=== PATIENT | female | born 1985 | race Caucasian/White ===

== ENCOUNTER → 2017-09-27 | Outpatient (CLI) | payer OTHER ==
[2017-09-27 08:38] LABS: HEMATOCRIT 42.7 % (36.0-47.0); HEMOGLOBIN 14.5 g/dL (12.0-15.5); MEAN CORPUSCULAR HEMOGLOBIN 29.5 pg (27.0-33.4); MEAN CORPUSCULAR VOLUME 87 fl (80-97); PLATELET COUNT 199 10^3/uL (150-450); RED BLOOD COUNT 4.93 10^6/uL (3.72-5.28); RED CELL DISTRIBUTION WIDTH 13.2 % (11.5-14.0); WHITE BLOOD COUNT 5.8 10^3/uL (4.0-10.5)
[2017-09-27 08:43] LABS: APPEARANCE,URINE SLIGHTLY-CLOUDY; BILIRUBIN,URINE NEGATIVE (NEGATIVE); GLUCOSE, URINE NEGATIVE (NEGATIVE); KETONES,URINE TRACE mg/dL (NEGATIVE); LEUKOCYTE ESTERASE,URINE TRACE (NEGATIVE); NITRITE,URINE NEGATIVE (NEGATIVE); PROTEIN,URINE NEGATIVE (NEGATIVE); URINE SPECIFIC GRAVITY 1.018
[2017-09-27 08:49] LABS: COLOR,URINE DARK YELLOW
[2017-09-27 08:57] LABS: AMYLASE 48 U/L (30-110); ANION GAP 9 (5-19); CARBON DIOXIDE 29 mmol/L (22-30); CHLORIDE 106 mmol/L (98-107); CHOLESTEROL 132.77 mg/dL (0-200); GLUCOSE 89 mg/dL (75-110); PHOSPHORUS 3.8 mg/dL (2.5-4.5); POTASSIUM 4.3 mmol/L (3.6-5.0); SODIUM 143.9 mmol/L (137-145); TRIGLYCERIDES 59 mg/dL (<150)
[2017-09-27 09:07] LABS: DIRECT LDL 78 mg/dL (<100)
[2017-09-27 09:09] LABS: PREALBUMIN 23.6 mg/dL (17.6-36.0)
[2017-09-27 12:59] LABS: FREE T4 (FREE THYROXINE) 1.02 ng/dL (0.78-2.19)
[2017-09-27 13:13] LABS: THYROID STIMULATING HORMONE 0.56 uIU/mL (0.47-4.68)
--- NOTE | 2017-09-27 13:18 | EKG REPORT ---
SEVERITY:- NORMAL ECG - SINUS RHYTHM : Confirmed by: Abdifatah Burns MD 27-Sep-2017 13:17:07
== END ==
LOC: OD 07:32
PROVIDERS: ATTEND Psychiatry & Neurology Psychiatry
DX: Z79.899 Other long term (current) drug therapy (principal)
CPT/HCPCS: 36415; 80051; 80061; 81005; 82150; 82947; 83735; 84100; 84134; 84439; 84443; 84703; 85027; 93005; 93010

== ENCOUNTER → 2017-10-11 | Outpatient (CLI) | payer OTHER ==
[2017-10-11 07:57] LABS: HEMATOCRIT 40.8 % (36.0-47.0); HEMOGLOBIN 14.1 g/dL (12.0-15.5); MEAN CORPUSCULAR HEMOGLOBIN 30.2 pg (27.0-33.4); MEAN CORPUSCULAR HGB CONC 34.6 g/dL (32.0-36.0); MEAN CORPUSCULAR VOLUME 87 fl (80-97); PLATELET COUNT 179 10^3/uL (150-450); RED BLOOD COUNT 4.66 10^6/uL (3.72-5.28); RED CELL DISTRIBUTION WIDTH 13.6 % (11.5-14.0); WHITE BLOOD COUNT 6.6 10^3/uL (4.0-10.5)
[2017-10-11 07:59] LABS: APPEARANCE,URINE SLIGHTLY-CLOUDY; BILIRUBIN,URINE NEGATIVE (NEGATIVE); GLUCOSE, URINE NEGATIVE (NEGATIVE); KETONES,URINE TRACE mg/dL (NEGATIVE); LEUKOCYTE ESTERASE,URINE MODERATE (NEGATIVE); NITRITE,URINE NEGATIVE (NEGATIVE); PROTEIN,URINE NEGATIVE (NEGATIVE); URINE SPECIFIC GRAVITY 1.021
[2017-10-11 08:00] LABS: COLOR,URINE YELLOW
--- NOTE | 2017-10-11 08:16 | EKG REPORT ---
SEVERITY:- NORMAL ECG - SINUS RHYTHM : Confirmed by: Saritha Johnson MD 11-Oct-2017 08:14:45
[2017-10-11 08:19] LABS: AMYLASE 77 U/L (30-110); ANION GAP 8 (5-19); CARBON DIOXIDE 29 mmol/L (22-30); CHLORIDE 108 mmol/L (98-107); CHOLESTEROL 116.97 mg/dL (0-200); GLUCOSE 93 mg/dL (75-110); PHOSPHORUS 3.7 mg/dL (2.5-4.5); POTASSIUM 4.1 mmol/L (3.6-5.0); SODIUM 144.6 mmol/L (137-145); TRIGLYCERIDES 56 mg/dL (<150)
[2017-10-11 08:29] LABS: PREALBUMIN 25.2 mg/dL (17.6-36.0)
[2017-10-11 08:36] LABS: DIRECT LDL 58 mg/dL (<100)
== END ==
LOC: OD 07:06
PROVIDERS: ATTEND Psychiatry & Neurology Psychiatry
DX: Z79.899 Other long term (current) drug therapy (principal)
CPT/HCPCS: 36415; 80051; 80061; 81005; 82150; 82947; 83735; 84100; 84134; 84443; 84703; 85027; 93005; 93010

== ENCOUNTER 2018-08-06 18:59 | Emergency (ER) | payer OTHER ==
[2018-08-06] MEDS ORDERED: HYDROCODONE/ACETAMINOPHEN 5-325 MG TABLET PO ONE (22:09)
--- NOTE | 2018-08-06 22:41 | RADIOLOGY REPORT (SQ) ---
EXAM DESCRIPTION: XR SHOULDER 2 OR MORE VIEWS COMPLETED DATE/TME: 08/06/2018 22:07 CLINICAL HISTORY: 33 years, Female, pain COMPARISON: None. NUMBER OF VIEWS: 3 TECHNIQUE: 3 view left shoulder LIMITATIONS: None. FINDINGS: Negative for fracture or dislocation. Soft tissues are unremarkable. Joint spaces are preserved IMPRESSION: Negative exam copyright 2010 [employer]- All Rights Reserved
--- NOTE | 2018-08-06 22:41 | RADIOLOGY REPORT (SQ) ---
EXAM DESCRIPTION: XR HIP 2 OR MORE VIEWS COMPLETED DATE/TME: 08/06/2018 22:08 CLINICAL HISTORY: 33 years, Female, pain COMPARISON: None. NUMBER OF VIEWS: 2 TECHNIQUE: AP pelvis and frog-leg view of the left hip LIMITATIONS: None. FINDINGS: Negative for fracture or dislocation. Soft tissues are unremarkable IMPRESSION: Negative exam copyright 2010 [employer]- All Rights Reserved
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
[2018-08-06 23:35] VITALS: BP 115/84
== END 2018-08-06 23:37 | disposition home or self-care (01) ==
LOC: ER 18:59
DX: M25.512 Pain in left shoulder (principal); M25.552 Pain in left hip; V53.5XXD Driver of pick-up truck or van injured in collision with car, pick-up truck or van in traffic accident, subsequent encounter
CPT/HCPCS: 99283

== ENCOUNTER → 2018-10-16 | Outpatient (CLI) | payer SELFPAY ==
--- NOTE | 2018-10-16 19:05 | RADIOLOGY REPORT (SQ) ---
EXAM DESCRIPTION: MRI LT UPPER JOINT WITHOUT COMPLETED DATE/TIME: 10/16/2018 6:08 pm REASON FOR STUDY: M25.512 PAIN IN LEFT SHOULDER M25.512 PAIN IN LEFT SHOULDER COMPARISON: Radiograph 08/06/2018 TECHNIQUE: Left shoulder images acquired and stored on PACS. Multiplanar imaging to include fat sens itive sequences such as T1, water sensitive sequences such as FST2/STIR, cartilage sensitive sequence s such as FSPD/gradient-echo sequences. LIMITATIONS: None. FINDINGS: BONE MARROW AND CORTEX: No worrisome bone lesions or marrow replacement. No occult fractur es. JOINT OR BURSAL EFFUSION: No significant joint or bursal fluid. No suggestion of loose bodies. GLENO-HUMERAL ARTICULATION: Normal articulation. No subluxation. No cystic change. No osteophytes or cartilage loss. ACROMION AND AC JOINT: No down-sloping or distal spur. Sub-acromial space maintained. No significa nt AC joint arthropathy. ROTATOR CUFF AND INTERVAL: No rotator cuff tear. Mild tendinosis of the distal supraspinatus tendon. . No cuff muscle atrophy. No rotator interval tear. No rotator interval thickening to suggest adhesive capsulitis. LABRUM AND BICEPS LABRAL COMPLEX: Irregular appearance of the posterior labrum, possible labral tea r. Intra-articular long-head biceps tendon normal. Distal biceps in normal location in bicipital jessie ove. REMAINDER OF LABRUM AND IGHL : No gross tear or paralabral cyst formation. Labral evaluation is less than optimal without joint distention. No thickening of IGHL to suggest adhesive capsulitis. PERIARTICULAR AND ADJACENT SOFT TISSUES: No masses or abnormal nodes. OTHER: No other significant finding. IMPRESSION: No rotator cuff tear. Mild tendinosis of the distal supraspinatus tendon. Irregular ap pearance of the posterior labrum, possible labral tear, consider MR arthrogram to further evaluate. TECHNICAL DOCUMENTATION: JOB ID: [id number] [place]-72 2010 [employer]- All Rights Reserved Reading location - IP/workstation name: [email or web address]
== END ==
LOC: RAD 15:55
PROVIDERS: ATTEND Nurse Practitioner Family
DX: M25.512 Pain in left shoulder (principal); M75.82 Other shoulder lesions, left shoulder

== ENCOUNTER → 2018-11-05 | Day surgery (SDC) | payer SELFPAY ==
--- NOTE | 2018-11-05 16:03 | RADIOLOGY REPORT (SQ) ---
EXAM DESCRIPTION: ARTHRO SHOULDER; FLUORO/NEEDLE PLACEMENT/SPINE COMPLETED DATE/TIME: 11/05/2018 3:37 pm REASON FOR STUDY: M25.512 PAIN IN LEFT SHOULDER; PAIN IN LEFT SHOULDER M25.512 PAIN IN LEFT SHOULDE R COMPARISON: None. FLUOROSCOPY TIME: 16 seconds 1 images saved to PACS. LIMITATIONS: None. PROCEDURE: Procedure, risks, benefits and alternatives explained to patient who then gave written co nsent. The left shoulder was marked and a time out was called for correct procedure verification. Po sterior entry site marked using fluoroscopic guidance. Shoulder prepped and draped using sterile yola hnique. Local anesthesia achieved using 1% lidocaine injection. Hypodermic needle introduced into t he joint space under direct fluoroscopic visualization. Non-ionic contrast instilled to confirm intra -articular position. Dilute gadolinium solution then injected. Needle removed and entry site covered with sterile bandage. No immediate complications noted. TECHNIQUE: Digital images acquired during fluoroscopy and stored on PACS. Patient immediately take n to the MR suite for additional imaging. INJECTION LOCATION: Posterior left shoulder. CONTRAST TYPE AND AMOUNT: 1 cc Omnipaque 10 cc Dotarem/Saline mixture. IMPRESSION: SUCCESSFUL NEEDLE PLACEMENT AND INJECTION FOR LEFT SHOULDER MR ARTHROGRAM USING POSTERIO R APPROACH. COMMENT: Quality ID [id number]: Final reports for procedures using fluoroscopy that document radiation exp osure indices, or exposure time and number of fluorographic images (if radiation exposure indices are not available) TECHNICAL DOCUMENTATION: JOB ID: [id number] [employer]- All Rights Reserved Reading location - IP/workstation name: [email or web address]
--- NOTE | 2018-11-05 16:45 | RADIOLOGY REPORT (SQ) ---
EXAM DESCRIPTION: MRI CERVICAL SPINE WITHOUT COMPLETED DATE/TIME: 11/05/2018 4:31 pm REASON FOR STUDY: M25.512 PAIN IN LEFT SHOULDER M25.512 PAIN IN LEFT SHOULDER COMPARISON: None. TECHNIQUE: Sagittal and Axial imaging includes T1, T2, STIR and gradient echo sequences. LIMITATIONS: Motion. FINDINGS: ALIGNMENT: Reversal of the lordotic curve. VERTEBRAE: Intact. BONE MARROW: Benign hemangioma C 7. No significant marrow abnormality. DISCS: Normal. No significant abnormal signal or loss of height. HARDWARE: None in the spine. CORD AND BASE OF BRAIN: Normal in size and signal intensity. SOFT TISSUES: No soft tissue masses. C1-C2: No significant spinal stenosis. C2-C3: No significant spinal stenosis or exit foraminal stenosis. C3-C4: Disc bulge. No significant stenosis. C4-C5: Disc bulge. No significant stenosis. C5-C6: Minimal disc bulge. No significant stenosis. C6-C7: No significant spinal stenosis or exit foraminal stenosis. C7-T1: No significant spinal stenosis or exit foraminal stenosis. UPPER THORACIC: Incompletely imaged. No significant spinal stenosis or exit foraminal stenosis. OTHER: No other significant finding. IMPRESSION: Bulging discs. No evidence of disc herniation. TECHNICAL DOCUMENTATION: JOB ID: [id number] [employer]- All Rights Reserved Reading location - IP/workstation name: [email or web address]
--- NOTE | 2018-11-05 16:48 | RADIOLOGY REPORT (SQ) ---
EXAM DESCRIPTION: MRI LT UPPER JOINT WITH COMPLETED DATE/TIME: 11/05/2018 4:31 pm REASON FOR STUDY: M25.512 PAIN IN LEFT SHOULDER M25.512 PAIN IN LEFT SHOULDER COMPARISON: 10/16/2018 TECHNIQUE: Left shoulder images acquired and stored on PACS. Oblique coronal, oblique sagittal, and axial imaging to include fat sensitive sequences as T1, water sensitive sequences as FST2/STIR, and c ontrast sensitive sequences as FST1. LIMITATIONS: None. FINDINGS: JOINT DISTENTION: Adequate distention for interpretation. BONE MARROW AND CORTEX: Normal. No significant osteophytes. No edema or defects. AC JOINT: Type II acromion. No significant AC joint arthropathy. GLENOHUMERAL JOINT: No subluxation or dislocation. No focal chondral defects or reactive bone changes . ROTATOR CUFF: Intact without significant tendinopathy, partial or full-thickness tears. No peritendin itis. LABRUM AND BICEPS LABRAL COMPLEX: Normal signal in the rotator interval without tear of the superior glenohumeral ligament. Superior labrum, intra-articular long head biceps intact. Distal biceps in no rmal anatomic location in bicipital groove. No paralabral cysts. INFERIOR LABRAL COMPLEX: Bony glenoid and labrum intact. IGHL intact without thickening or tear. No p aralabral cysts. ADJACENT SOFT TISSUES: No masses or nodes. OTHER: No other significant finding. IMPRESSION: NORMAL MRI ARTHROGRAM OF THE SHOULDER. TECHNICAL DOCUMENTATION: JOB ID: [id number] [employer]- All Rights Reserved Reading location - IP/workstation name: [email or web address]
== END ==
LOC: RAD 14:33
PROVIDERS: ATTEND Nurse Practitioner Family
DX: M25.512 Pain in left shoulder (principal)
CPT/HCPCS: 73222; 72141; 73040; 77002; A9576; 77003

== ENCOUNTER 2019-05-30 15:21 | Emergency (ER) | payer BC, OTHER ==
[2019-05-30 15:29] VITALS: BP 123/84
[2019-05-30] MEDS ORDERED: HYDROCODONE/ACETAMINOPHEN 5-325 MG TABLET PO ONE (16:54)
[2019-05-30] MEDS ORDERED: LIDOCAINE 5% (700 MG) TRANSDERMAL ADH..PATCH TP ONE (16:54)
--- NOTE | 2019-05-30 16:59 | ER Document Report ---
HPI - HPI Patient complains to provider of: upper back pain Time Seen by Provider: 05/30/19 16:33 Onset: This afternoon Onset/Duration: Sudden Quality of pain: Achy Pain Level: 4 Context: Patient states she was at work and moved suddenly pulling her right upper back. Patient states that she has a history of a left shoulder injury for which she frequently attempts to compensate. Patient denies any traumatic new injury. Patient feels as though her back is spasming. Associated Symptoms: denies: Fever, Headache Exacerbated by: Movement Relieved by: Denies Similar symptoms previously: Yes Recently seen / treated by doctor: No - ROS ROS below otherwise negative: Yes Systems Reviewed and Negative: Yes All other systems reviewed and negative - CONSTITUTIONAL Constitutional: DENIES: Fever - NEURO Neurology: DENIES: Headache, Weakness - REPRODUCTIVE LMP: 2017 had ablasion Reproductive: DENIES: : - MUSCULOSKELETAL Musculoskeletal: REPORTS: Extremity pain, Back Pain - DERM Skin Color: Normal Skin Problems: None Past Medical History - General Information source: Patient - Social History Smoking Status: Current Every Day Smoker Chew tobacco use (# tins/day): No Frequency of alcohol use: None Drug Abuse: None Occupation: [employer] Lives with: Family Family History: Reviewed & Not Pertinent Patient has suicidal ideation: No Patient has homicidal ideation: No - Medical History Medical History: Other - Guillain-Quintanilla Renal/ Medical History: Denies: Hx Peritoneal Dialysis Musculoskeletal Medical History: Reports Hx Arthritis Past Surgical History: Reports: Hx Tubal Ligation Vertical Provider Document - CONSTITUTIONAL Agree With Documented VS: Yes Exam Limitations: No Limitations General Appearance: WD/WN, No Apparent Distress - INFECTION CONTROL TRAVEL OUTSIDE OF THE [place] IN LAST 30 DAYS: No - HEENT HEENT: Atraumatic, Normocephalic - NECK Neck: Supple. negative: Lymphadenopathy-Left, Lymphadenopathy-Right Notes: right paraspinal muscle tenderness, spasm - RESPIRATORY Respiratory: Breath Sounds Normal, No Respiratory Distress - CARDIOVASCULAR Cardiovascular: Regular Rate, Regular Rhythm Pulses: Normal: Radial - BACK Back: Abnormal Inspection - right thoracic paraspinal muscle tenderness and spasm, no midline tenderness step-off or deformity - MUSCULOSKELETAL/EXTREMETIES Musculoskeletal/Extremeties: MAEW Notes: Patient guards with movement of the left shoulder - NEURO Level of Consciousness: Awake, Alert, Appropriate Motor/Sensory: No Motor Deficit - DERM Integumentary: Warm, Dry, No Rash Course - Vital Signs Vital signs: Temp Pulse Resp BP Pulse Ox 97.8 F 79 16 123/84 98 05/30/19 15:27 05/30/19 15:27 05/30/19 15:27 05/30/19 15:27 05/30/19 15:27 Discharge - Discharge Clinical Impression: Upper back strain Qualifiers: Encounter type: initial encounter Qualified Code(s): S29.012A - Strain of muscle and tendon of back wall of thorax, initial encounter Cervical strain Qualifiers: Encounter type: initial encounter Qualified Code(s): S16.1XXA - Strain of muscle, fascia and tendon at neck level, initial encounter Condition: Stable Disposition: HOME, SELF-CARE Instructions: Muscle Relaxers ([facility]), Neck Injury (Cervical Strain) ([facility]), Upper Back Strain ([facility]) Additional Instructions: Return immediately for any new or worsening symptoms Followup with your primary care provider, call tomorrow to make a followup appointment Prescriptions: Lidocaine [Lidoderm 5% (700 mg) Transdermal Patch] 1 patch TP DAILY PRN #10 adh..patch PRN Reason: Naproxen [Naprosyn 250 Nmg Tablet] 1 tab PO BID #14 tablet Methocarbamol [Robaxin 500 Mg Tablet] 500 mg PO QID PRN #30 tablet PRN Reason: Referrals: JOHNNY CHAO FNP-C [Primary Care Provider] - Follow up as needed [facility] [Provider Group] - Follow up as needed
== END 2019-05-30 17:25 | disposition home or self-care (01) ==
LOC: ER 15:21
DX: S29.012A Strain of muscle and tendon of back wall of thorax, initial encounter (principal); S16.1XXA Strain of muscle, fascia and tendon at neck level, initial encounter; X50.9XXA Other and unspecified overexertion or strenuous movements or postures, initial encounter; Y99.0 Civilian activity done for income or pay; M62.830 Muscle spasm of back; F17.200 Nicotine dependence, unspecified, uncomplicated
CPT/HCPCS: 99283

== ENCOUNTER 2019-06-06 18:49 | Emergency (ER) | payer BC, OTHER ==
--- NOTE | 2019-06-06 21:27 | ER Document Report ---
ED Medical Screen (RME) - General Chief Complaint: Congestion Stated Complaint: SHORT OF BREATH,CONGESTION Time Seen by Provider: 06/06/19 21:17 Primary Care Provider: JOHNNY CHAO FNP-C [Primary Care Provider] - Follow up as needed Mode of Arrival: Ambulatory Information source: Patient Notes: 34-year-old female presented to ED for complaint of cough cold congestion for 2 weeks. She was diagnosed by her primary care doctor on Monday with influenza. She states she started with nausea vomiting and diarrhea this morning. She states she did call her primary care doctor and they told her to stop taking the Tamiflu. She states she has had some blood in her stools since the second or third diarrhea stool today. She states she is also had a bloody nose since taking the Tamiflu. Patient is alert oriented respirations regular nonlabored speaking in full sentences. Patient does continue to have a nonproductive cough but lung sounds are clear. I have greeted and performed a rapid initial assessment of this patient. A comprehensive ED assessment and evaluation of the patient, analysis of test results and completion of medical decision making process will be conducted by an additional ED providers. TRAVEL OUTSIDE OF THE [place] IN LAST 30 DAYS: No - Related Data Allergies/Adverse Reactions: No Known Allergies Allergy (Verified 05/30/19 16:32) Past Medical History Renal/ Medical History: Denies: Hx Peritoneal Dialysis Musculoskeltal Medical History: Reports Hx Arthritis Past Surgical History: Reports: Hx Tubal Ligation Physical Exam - Vital signs Vitals: Temp Pulse Resp BP Pulse Ox 98.4 F 82 16 112/83 97 06/06/19 18:55 06/06/19 18:55 06/06/19 18:55 06/06/19 18:55 06/06/19 18:55 Course - Vital Signs Vital signs: Temp Pulse Resp BP Pulse Ox 98.4 F 82 16 112/83 97 06/06/19 18:55 06/06/19 18:55 06/06/19 18:55 06/06/19 18:55 06/06/19 18:55 Doctor's Discharge - Discharge Referrals: JOHNNY CHAO FNP-C [Primary Care Provider] - Follow up as needed
[2019-06-06 21:49] LABS: ABSOLUTE LYMPHOCYTES (AUTO) 0.8 10^3/uL (0.5-4.7); ABSOLUTE MONOCYTES (AUTO) 0.5 10^3/uL (0.1-1.4); ABSOLUTE NEUT (AUTO) 8.1 10^3/uL (1.7-8.2); BASOPHILS % (AUTO) 0.1 % (0-2); HEMATOCRIT 45.3 % (36.0-47.0); HEMOGLOBIN 15.9 g/dL (12.0-15.5); LYMPHOCYTES % (AUTO) 8.3 % (13-45); MEAN CORPUSCULAR HEMOGLOBIN 30.7 pg (27.0-33.4); MEAN CORPUSCULAR HGB CONC 35.2 g/dL (32.0-36.0); MEAN CORPUSCULAR VOLUME 87 fl (80-97); MONOCYTES % (AUTO) 4.9 % (3-13); PLATELET COUNT 166 10^3/uL (150-450); RED CELL DISTRIBUTION WIDTH 12.4 % (11.5-14.0); SEGMENTED NEUTROPHILS % (AUTO) 86.7 % (42-78); TOTAL CELLS COUNTED % (AUTO) 100 %; WHITE BLOOD COUNT 9.3 10^3/uL (4.0-10.5)
--- NOTE | 2019-06-06 22:02 | RADIOLOGY REPORT (SQ) ---
Chest 2 view on 06/06/2019 at 9:54 PM CLINICAL INDICATION: Cough, shortness of breath COMPARISON: None FINDINGS: The lungs are clear. Cardiac, hilar and mediastinal contours are within normal limits. Pulmonary vascularity is within normal limits. No bony abnormality is noted. IMPRESSION: No active disease.
[2019-06-06 22:05] LABS: ALBUMIN 4.3 g/dL (3.5-5.0); ALKALINE PHOSPHATASE 74 U/L (38-126); ANION GAP 9 (5-19); ASPARTATE AMINO TRANSFERASE 62 U/L (14-36); BILIRUBIN,DIRECT 0.3 mg/dL (0.0-0.4); BILIRUBIN,TOTAL 0.3 mg/dL (0.2-1.3); BLOOD UREA NITROGEN 11 mg/dL (7-20); CALCIUM 9.5 mg/dL (8.4-10.2); CARBON DIOXIDE 30 mmol/L (22-30); CHLORIDE 102 mmol/L (98-107); GLUCOSE 125 mg/dL (75-110); POTASSIUM 4.7 mmol/L (3.6-5.0); TOTAL PROTEIN 7.5 g/dL (6.3-8.2)
[2019-06-07] MEDS ORDERED: DEXAMETHASONE SOD PHOS INJ 10 MG/1 ML VIAL IV ONE (00:35)
[2019-06-07] MEDS ORDERED: RINGERS SOLUTION,LACTATED 1,000 ML IV ONE (00:35)
[2019-06-07] MEDS ORDERED: IPRATROPIUM/ALBUTEROL 0.5-2.5 MG/3 ML AMPUL NEB ONE (00:35)
--- NOTE | 2019-06-07 00:36 | ER Document Report ---
ED General - General Chief Complaint: Flu Symptoms Stated Complaint: SHORT OF BREATH,CONGESTION Time Seen by Provider: 06/06/19 21:17 Primary Care Provider: JOHNNY CHAO FNP-C [NO LOCAL MD] - Follow up as needed Mode of Arrival: Ambulatory TRAVEL OUTSIDE OF THE [place] IN LAST 30 DAYS: No - HPI Patient complains to provider of: flu Onset: Other Onset/Duration: Sudden Quality of pain: No pain Severity: Moderate Context: 34 year old male complains of weakness, weight loss, hematochezia, epistaxis, and + flu test at PCP office the first of this week. She was diagnosed with flu after cough and flu symptoms which began earlier this week. Fever to 103 at times. Treated with inhaler, steroids, cough medicine and ketorolac shot at PCP's office. She felt perhaps a bit better des - 2 days ago - but worse yesterday. Cough continues. Loose stool yesterday and sweaty and occaisional paroxsymal cough. No chest pain but some sob. 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 She stopped smoking wiht this illness. She has stopped the tamiflu on the advice of the pcp. Associated symptoms: None Exacerbated by: Denies Relieved by: Denies - Related Data Allergies/Adverse Reactions: No Known Allergies Allergy (Verified 05/30/19 16:32) Past Medical History - General Information source: Patient - Social History Smoking Status: Current Every Day Smoker Family History: Reviewed & Not Pertinent Patient has suicidal ideation: No Patient has homicidal ideation: No Renal/ Medical History: Denies: Hx Peritoneal Dialysis Musculoskeletal Medical History: Reports Hx Arthritis Past Surgical History: Reports: Hx Tubal Ligation Review of Systems - Review of Systems Constitutional: See HPI, Chills, Fever EENT: See HPI, Nose congestion Cardiovascular: No symptoms reported Respiratory: See HPI, Cough Gastrointestinal: Diarrhea Genitourinary: No symptoms reported Female Genitourinary: No symptoms reported Musculoskeletal: No symptoms reported Skin: No symptoms reported Hematologic/Lymphatic: No symptoms reported Neurological/Psychological: No symptoms reported Physical Exam - Vital signs Vitals: Temp Pulse Resp BP Pulse Ox 98.4 F 82 16 112/83 97 06/06/19 18:55 06/06/19 18:55 06/06/19 18:55 06/06/19 18:55 06/06/19 18:55 Interpretation: Normal - General General appearance: Appears well, Alert - HEENT Head: Normocephalic, Atraumatic Eyes: Normal Pupils: PERRL - Respiratory Respiratory status: No respiratory distress Chest status: Nontender Breath sounds: Normal Chest palpation: Normal - Cardiovascular Rhythm: Regular Heart sounds: Normal auscultation Murmur: No - Abdominal Inspection: Normal Distension: No distension Bowel sounds: Normal Tenderness: Nontender Organomegaly: No organomegaly - Back Back: Normal, Nontender - Extremities General upper extremity: Normal inspection, Nontender, Normal color, Normal ROM, Normal temperature General lower extremity: Normal inspection, Nontender, Normal color, Normal ROM, Normal temperature, Normal weight bearing. No: Pearl's sign - Neurological Neuro grossly intact: Yes Cognition: Normal Orientation: AAOx4 Javier Coma Scale Eye Opening: Spontaneous Mcgrath Coma Scale Verbal: Oriented Mcgrath Coma Scale Motor: Obeys Commands Javier Coma Scale Total: 15 Speech: Normal Motor strength normal: LUE, RUE, LLE, RLE Sensory: Normal - Psychological Associated symptoms: Normal affect, Normal mood - Skin Skin Temperature: Warm Skin Moisture: Dry Skin Color: Normal Course - Vital Signs Vital signs: Temp Pulse Resp BP Pulse Ox 98.4 F 82 16 112/83 97 06/06/19 18:55 06/06/19 18:55 06/06/19 18:55 06/06/19 18:55 06/06/19 18:55 - Laboratory Result Diagrams: 06/06/19 21:21 06/06/19 21:21 Laboratory results interpreted by me: 06/06/19 06/06/19 21:21 21:21 Hgb 15.9 H Lymph % (Auto) 8.3 L Seg Neutrophils % 86.7 H Glucose 125 H AST 62 H - Diagnostic Test Radiology reviewed: Reports reviewed Discharge - Discharge Clinical Impression: Cough, Viral illness, Dehydration Condition: Good Disposition: HOME, SELF-CARE Instructions: Fever ([facility]), Acetaminophen, Viral Syndrome ([facility]) Additional Instructions: Tylenol/ motrin for fever, achiness. Rest, plenty of fluids, continue to not smoke cigarrettes. Popsicles, gatoraide, and other fluids as directed. Plain white rice as discussed. Take the other medicine as directed. Referrals: JOHNNY CHAO FNP-C [NO LOCAL MD] - Follow up as needed
[2019-06-07 02:49] VITALS: BP 125/86
--- NOTE | 2019-06-07 13:06 | EKG REPORT ---
SEVERITY:- NORMAL ECG - SINUS RHYTHM : Confirmed by: Mariam Anguiano 07-Jun-2019 13:05:32
== END 2019-06-07 01:44 | disposition home or self-care (01) ==
LOC: ER 18:49
DX: B34.9 Viral infection, unspecified (principal); E86.0 Dehydration; R05 Cough; R06.02 Shortness of breath; F17.200 Nicotine dependence, unspecified, uncomplicated; Z98.51 Tubal ligation status
CPT/HCPCS: 93005; 94640; 99284; 96361; 96374; 36415; 87070; 87880; 84703; 85025; 80053; 84484; 71046; 93010; J7120; J1100; J7620